=== PATIENT | female | born 1960 | race Caucasian/White ===

== ENCOUNTER 2023-12-15 12:50 | Inpatient (IN) | payer BC ==
[~2023-12-15] VITALS: Ht 170.2 cm; Wt 104.0 kg
[2023-12-15] VITALS (13 sets, daily range): BP systolic 102–176; BP diastolic 66–83; PULSE 39–75; TEMP 98.1–98.2
--- NOTE | 2023-12-15 14:04 | NUR ---
arrived per EMS to room 358, assisted up to bathroom and voids qs, then out and over into bed
[2023-12-15] MEDS ORDERED: NAPROSYN500 MG PO (14:10)
[2023-12-15] MEDS ORDERED: SYNTHROID0.088 MG/T PO (14:10)
[2023-12-15] MEDS ORDERED: CRESTOR40 MG PO (14:11)
[2023-12-15] MEDS ORDERED: HYGROTON 2525 MG/TAB (14:12)
[2023-12-15] MEDS ORDERED: GLUCOPHAGE XR500 M1 PO (14:13)
[2023-12-15] MEDS ORDERED: ESTRACE0.5 MG PO (14:14)
[2023-12-15] MEDS ORDERED: DETROL LA4 PO (14:20)
--- NOTE | 2023-12-15 14:25 | NUR ---
Dr Sharp and ROSAURA Mora in to see and assesspatient
--- NOTE | 2023-12-15 14:35 | NUR ---
physical assessment completed, she is pleasant and coopertive and very talkative, concerned about having the procedure and many questions asked of Abby RN with Dr Sharp,, Zoie RN with cardiac cath rn in to talk with patient
--- NOTE | 2023-12-15 14:45 | NUR ---
Dr Zavala in to see patient
[2023-12-15] MEDS ORDERED: 1/2 NS 1,000 ML IV SCH (15:00)
[2023-12-15] MEDS ORDERED: Vancomycin 1.5 GM,Special Dose/Pharmacy Prepared 1.5 GM in NS 250 ML IV SCH (15:00)
[2023-12-15] MEDS ORDERED: Docusate Sodium 100 MG CAP PO PRN (15:15)
[2023-12-15] MEDS ORDERED: Glucagon 1 MG VIAL IM PRN (15:15)
[2023-12-15] MEDS ORDERED: Dextrose (Glucose) 15 GM (4 x 3.75 GM) Chewable TABLET PACK PO PRN (15:15)
[2023-12-15] MEDS ORDERED: Acetaminophen 325 MG TAB PO PRN ×2 (15:15→17:30)
[2023-12-15] MEDS ORDERED: Polyethylene Glycol 3350 17 GM PDS PO PRN (15:15)
[2023-12-15] MEDS ORDERED: Dextrose 50% Water 25 GM/50 ML SYRINGE IV PRN (15:15)
[2023-12-15] MEDS ORDERED: Ondansetron 4 MG/2 ML VIAL IV PRN (15:15)
[2023-12-15] MEDS ORDERED: NS 1,000 ML IV.SOLN. IR SCH (15:39)
--- NOTE | 2023-12-15 15:40 | NUR ---
SEE MERGE FOR PROCEDURE DOCUMENTATION
[2023-12-15] MEDS ORDERED: Vancomycin 1 GM VIAL IR SCH (15:41)
[2023-12-15] MEDS ORDERED: Water For Inj, Sterile 10 ML VIAL IJ SCH (15:42)
[2023-12-15] MEDS ORDERED: TENORMIN 2525 MG/TAB PO (15:43)
--- NOTE | 2023-12-15 16:24 | NUR ---
remains off the unit and in the lab scientist
[2023-12-15] MEDS ORDERED: NS 500 ML IV.SOLN. IR SCH (16:27)
[2023-12-15] MEDS ORDERED: Iohexol 350 - 100 ML VIAL IV ONE (16:40)
[2023-12-15] MEDS ORDERED: Insulin Lispro (HumaLOG) SQ SCH (17:00)
[2023-12-15] MEDS ORDERED: fentaNYL 50 MCG/ML 2 ML VIAL IV SCH (17:05)
[2023-12-15] MEDS ORDERED: Midazolam 2 MG/2 ML VIAL IV SCH (17:07)
--- NOTE | 2023-12-15 17:45 | NUR ---
returned to room per bed from cathode builder, awake and alert, assisted up to bathroom and voided and then back to bed, admission assessment completed, see intervention for further info, instructed patient and niece on ordering something to eat and verbalizes understanding, given water to drink and takes without nausea, denies needs
--- NOTE | 2023-12-15 18:20 | NUR ---
reviewed menu but did not see anything she wanted to eat, then regular supper tray delivered
--- NOTE | 2023-12-15 18:53 | NUR ---
bedside shift report given to ROSAURA Canales
[2023-12-15] MEDS ORDERED: Atorvastatin 40 MG TAB PO SCH (21:00)
[2023-12-15] MEDS ORDERED: Clindamycin 150 MG CAP PO SCH (21:00)
[2023-12-16] VITALS (7 sets, daily range): BP systolic 104–150; BP diastolic 74–81; PULSE 60–72; TEMP 97.7–98.2
--- NOTE | 2023-12-16 01:27 | NUR ---
PT IS RESTING IN THE BED WATCHING TV. SHE HAS HER LEFT ARM IN A SLING AND A LARGE PRESSURE DRESSING OVER THE PACEMAKER INSERTION SITE. SHE DOES NOT COMPLAIN OF PAIN AT THIS TIME. SHE IS ALERT AND ORIENTED. SHE IS V-PACED. SHE IS ON ROOM AIR. SHE GETS UP TO VOID. SHE ONE 2 IV SITES BOTH LOCKED. SHE HAS HER CALL MENDEZ AT THE BEDSIDE.
[2023-12-16 06:57] LABS: BASO % 0.4 % (0.0-2.0); EOS # 0.1 K/mm3 (0.0-0.7); EOS % 1.5 % (0.0-4.0); GRAN # 3.6 K/mm3 (1.4-6.5); GRAN % 66.7 % (42.2-75.2); LYMPH # 1.3 K/mm3 (1.2-3.4); LYMPH % 24.8 % (20.0-51.0); MEAN CELL VOLUME 89 fl (80.0-100.0); MEAN CORPUSCULAR HEMOGLOBIN 31 pg (27-31); MEAN CORPUSCULAR HGB CONC 35 g/dl (33.0-37.0); MEAN PLATELET VOLUME 11.7 fl (7.4-10.4); MONO # 0.3 K/mm3 (0.1-0.6); MONO % 6.4 % (1.7-9.3); PLATELET COUNT 143 K/mm3 (130-400); RED BLOOD COUNT 3.88 M/mm3 (4.10-5.30)
[2023-12-16 07:03] LABS: HEMATOCRIT 34.7 % (37.0-47.0)
[2023-12-16 07:14] LABS: CALCIUM 9.2 mg/dL (8.4-10.2); CREATININE, serum 1.08 mg/dL (0.57-1.11); POTASSIUM 3.5 mEq/L (3.5-4.5)
[2023-12-16] MEDS ORDERED: Chlorthalidone 25 MG TAB PO SCH (09:00)
[2023-12-16] MEDS ORDERED: Rosuvastatin 20 MG **** subs to Atorvastatin 40 MG PO SCH (09:00)
--- NOTE | 2023-12-16 09:30 | NUR ---
Patient is sitting up on the side of the bed, alert and oriented x 4, VSS. Awaiting for the doctors to see her and let her go home. Assessment completed, meds given. Site CDI. No further needs at this time. Call light within reach.
--- NOTE | 2023-12-16 10:11 | NUR ---
Initial visit; Sara thanked Social Sciences Research Scientist for looking in on her this morning and inquiring how she was doing. Sara states that she is much better and thanked Social Sciences Research Scientist for stopping. wished Sara well following a conversation where learned a little about Sara and was able to make her smile.
[2023-12-16] MEDS ORDERED: CLEOCIN HCL300 MG PO (10:26)
--- NOTE | 2023-12-16 10:30 | NUR ---
Patient states she has some discomfort in her chest describing it as a needle poking her inside. Call placed to Cardiology nurse, Abby, who checked with Dr. Sharp. Dr. Sharp ordered to provide Tylenol for pain and place an icebag in the site. Provided.
--- NOTE | 2023-12-16 10:38 | NUR ---
Call placed to CARLTON Lay, she states will come in aprox 1 hr.
--- NOTE | 2023-12-16 13:54 | NUR ---
Drum Builder met with patient to discuss discharge planning. Patient lives alone in [place], [place] and sees Dr. Birch for primary care. Patient gets medications from [facility] in [place] with no difficulties. Patient does not use any DME and is independent with ADLS. 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 SW discussed [employer] and it's benefits. Patient declined and stated she did not need any assistance at this time. SW inquired about patient's next of kin. Patient stated she has children but they are not local. Patient wanted to list her brother, Turner Davis as emergency contact. Patient stated her mom, Lucy lives at [facility]. Patient was not interested in completing a DPOA-HC at this time. Patient plans to return home today. Discharge Plan; Home
--- NOTE | 2023-12-16 15:52 | NUR ---
Patient was provided with discharge informationm, all questions answered. IV accesses and telemetry were discontinued.
--- NOTE | 2023-12-16 16:00 | NUR ---
Pt escorted to private vehicle and discharged home with family.
== END 2023-12-16 16:00 | disposition home or self-care (01) | DRG 171 ==
LOC: MEDICAL 12:50
PROVIDERS: Physician Assistant; ADMIT Internal Medicine
PROC: 0JH606Z Insertion of Pacemaker, Dual Chamber into Chest Subcutaneous Tissue and Fascia, Open Approach (ICD-10-PCS; principal; 2023-12-15)
PROC: 02H63JZ Insertion of Pacemaker Lead into Right Atrium, Percutaneous Approach (ICD-10-PCS; 2023-12-15)
PROC: 02HK3JZ Insertion of Pacemaker Lead into Right Ventricle, Percutaneous Approach (ICD-10-PCS; 2023-12-15)
DX: I44.2 Atrioventricular block, complete (principal); I10 Essential (primary) hypertension; E11.9 Type 2 diabetes mellitus without complications; E03.9 Hypothyroidism, unspecified; I45.10 Unspecified right bundle-branch block; E87.6 Hypokalemia; F41.9 Anxiety disorder, unspecified; J30.9 Allergic rhinitis, unspecified; Z79.84 Long term (current) use of oral hypoglycemic drugs; Z79.890 Hormone replacement therapy; Z88.8 Allergy status to other drugs, medicaments and biological substances
CPT/HCPCS: C1769; C1785; C1894; C1898; J0665-JZ; J2250; J3010; J3370; J7030; J7040; J7050; Q9967